=== PATIENT | female | born 1975 | race Caucasian/White ===

== ENCOUNTER 2017-05-16 15:18 | Emergency (ER) | payer MEDICAID ==
[~2017-05-16] VITALS: Ht 165.1 cm; Wt 99.8 kg
[2017-05-16] MEDS ORDERED: ACETAMINOPHEN 500 MG TAB PO ONE ×2 (15:28→15:45)
[2017-05-16 17:32] VITALS: BP 118/47
[2017-05-16] MEDS ORDERED: MORPHINE SULFATE 4 MG/ML SYR/VIAL IV ONE ×2 (17:45→18:45)
[2017-05-16] MEDS ORDERED: ONDANSETRON HCL 4 MG/2 ML VIAL IV ONE (17:45)
[2017-05-16] MEDS ORDERED: PROMETHAZINE HCL 25 MG/ML 1ML ONE (18:41)
[2017-05-16] MEDS ORDERED: MORPHINE SULFATE 4 MG/ML SYR/VIAL ONE (18:41)
[2017-05-16] MEDS ORDERED: PROMETHAZINE HCL 25 MG/ML 1ML IV ONE (18:45)
== END 2017-05-16 19:06 | disposition home or self-care (01) ==
LOC: ER 15:18
DX: S52.501A Unspecified fracture of the lower end of right radius, initial encounter for closed fracture (principal); J45.909 Unspecified asthma, uncomplicated; V00.131A Fall from skateboard, initial encounter; Y93.89 Activity, other specified; Y92.89 Other specified places as the place of occurrence of the external cause; Y99.8 Other external cause status
CPT/HCPCS: 29125; 73110; 81025; 96374; 96375; 96376; 99284; J2270; J2405; J2550

== ENCOUNTER 2017-05-29 21:32 | Emergency (ER) | payer MEDICAID ==
[~2017-05-29] VITALS: Ht 165.1 cm; Wt 99.8 kg
[2017-05-29 22:00] VITALS: BP 137/88
== END 2017-05-30 04:10 | disposition left against medical advice (07) ==
LOC: ER 21:42
DX: R06.02 Shortness of breath (principal); R50.9 Fever, unspecified; Z53.21 Procedure and treatment not carried out due to patient leaving prior to being seen by health care provider
CPT/HCPCS: 71045